=== PATIENT | female | born 1980 | race Caucasian/White ===

== ENCOUNTER 2025-04-03 12:56 | Emergency (ER) | payer MEDICAID, SELFPAY ==
--- OUTSIDE RECORDS SUMMARY | 2025-02-13 02:00 | XMS_ITS ---
Author Organization [facility] Address [address] [place] [address] Care Team Providers Care Strain Technician Name Role Phone Mando Sparks Primary Care Provider [phone] Marivel Nance [phone] REASON FOR VISIT WRU Admit Eval Encounters Encounter Location Date Provider Diagnosis [address] [address] 02/13/2025 Marivel Nance Plan Of Treatment No Information Progress Notes * Breanna LAMA MDOB: 0 (44 yo F)Acc No.[id number]:02/13/2025 UNLOCKED PROGRESS NOTE Patient: Saniya EDWARDSBreanna Provider: Jo Ann Nance APN :1980 A ge:44 Y S ex:Female Date:02/13/2025 Phone: Address:[address] [place], [place] [id number] Pcp:Mando Sparks Structured Data:Is there a n tammi you would prefer we call you? (Nombre que prefiere usar) : No Subjective: * Chief Complaints: * 1 . WRU Admit Eval. * Medical History: Objective: * Vitals: Assessment: Plan: * Treatment: * * Electronic signature of Tevin Nance on 04/03/2025 at 03:35 PM GREENHOUSE LABORER Sign off status: Pending * Provider: Jo Ann Nance APN Date: Generated for Printi ng/Fabenjag/eTransmitting on: 06/03/2024 03:35 PM GREENHOUSE LABORER
--- OUTSIDE RECORDS SUMMARY | 2025-02-18 03:00 | XMS_ITS ---
Author Organization [facility] Address [address] [place] [address] Care Team Providers Care Spot Cleaner Name Role Phone Mando Sparks Primary Care Provider Gelacio Horton Unavailable [phone] REASON FOR VISIT MAT NewPT Encounters Encounter Location Date Provider Diagnosis [facility] [address] [place] [address] [place] [address] 02/18/2025 Gelacio Horton Plan Of Treatment No Information Progress Notes * Breanna LAMA MDOB: 0 (44 yo F)Acc No.[id number]:02/18/2025 UNLOCKED PROGRESS NOTE Patient: Saniya EDWARDS Breanna José Provider: Leonel Horton, MSN, DEVELOPMENT EDUCATOR, HEALTHCARE ECONOMICS MANAGER-C :1980 A ge:44 Y S ex:Female Date:02/18/2025 Phone: Address:[address] [place], [place] [id number] Pcp:Mando Sparks Structured Data:Is there a n tammi you would prefer we call you? (Nombre que prefiere usar) : No Subjective: * Chief Complaints: * 1 . MAT NewPT. * Medical History: Objective: * Vitals: Assessment: Plan: * Treatment: * * Electronic signature of Princess Horton APRN, [id number] on 04/03/2025 at 03:35 PM EXAMINER RATING CLERK Sign off status: Pending * Provider: Leonel Horton, MSN, DEVELOPMENT EDUCATOR, HEALTHCARE ECONOMICS MANAGER-C Date: Generated for Laquita ng/Faxing/eTransmitting on: 06/03/2024 03:35 PM EXAMINER RATING CLERK
--- OUTSIDE RECORDS SUMMARY | 2025-02-28 07:20 | XMS_ITS ---
Author Organization [facility] Address [address] [place] [address] Care Team Providers Care Cdl Service Technician Name Role Phone Mando Sparks Primary Care Provider [phone] Gelacio Horton Unavailable [phone] REASON FOR VISIT new patient Encounters Encounter Location Date Provider Diagnosis [facility] [address] [place] [address] [place] [address] 02/28/2025 Gelacio Horton Plan Of Treatment No Information Progress Notes * Breanna LAMA MDOB: 0 (44 yo F)Acc No.[id number]:02/28/2025 UNLOCKED PROGRESS NOTE Patient: Saniya EDWARDS Breanna José Provider: Leonel Horton, MSN, CAGE CASHIER, CASTING ASSISTANT-C :1980 A ge:44 Y S ex:Female Date:02/28/2025 Phone: Address:[address] [place], [place] [id number] Pcp:Mando Sparks Structured Data:Is there a n tammi you would prefer we call you? (Nombre que prefiere usar) : No Subjective: * Chief Complaints: * 1 . New patient. * Medical History: Objective: * Vitals: Assessment: Plan: * Treatment: * * Electronic signature of Princess Horton APRN, [id number] on 04/03/2025 at 03:35 PM MANAGER ASSESSMENT Sign off status: Pending * Provider: Leonel Horton, MSN, CAGE CASHIER, CASTING ASSISTANT-C Date: Generated for Laquita ng/Faxing/eTransmitting on: 06/03/2024 03:35 PM MANAGER ASSESSMENT
[2025-04-03 13:02] VITALS: BP 105/76; PULSE 109; RESP 18; TEMP 36.9; O2SAT 98
--- NOTE | 2025-04-03 13:11 | ED_ITS ---
HPI - General Adult General Chief complaint: Back Pain/Injury Stated complaint: pink eye/breathing issues/back pain Time Seen by Provider: 04/03/25 13:12 Source: patient Mode of arrival: ambulatory Limitations: no limitations History of Present Illness HPI narrative: 44 year old female who presents to [facility] care with complaints of awakening this morning with her right upper eyelid red and swollen and eye crusting noted with some yellow discharge and vision a little blurry. She reports also that she has had a productive cough for the past 5 month also admits to heavy tobacco use. Patint reports no acute dyspnea states sometime some shortness of breath with exertion. Patient also reports that she has some lower back papin with no known injury. Patient denies any dyfunction of bowel or bladder, no saddle paraesthesia, no radiation of pain.Visual acuity with glasses 20/40 bilateral eyes. MD complaint: right eyelid redness with crusting, productive cough, low back gustavo n Onset (ago): day(s) (this morning eye, 5 months productive cough,back 1 week) Severity scale (1-10): 10 Quality: aching and sharp Treatments prior to arrival: none Related Data Home Medications ?Medication ?Instructions ?Recorded ?Confirmed ?Last Taken ?Type ambien 04/03/25 Unknown History buspirone 5 mg tablet 5 mg PO ONCE 04/03/25 Unkno wn History levothyroxine 04/03/25 Unknown History olanzapine 10 mg tablet (Zyprexa) 10 mg PO DAILY 04/03 Unknown History zoloft 04/03/25 Unknown History Allergies Allergy/AdvReac Type Severity Reaction Status Date / Time No Known Allergies Allergy Verified 04/03/25 13:09 Review of Systems Review of Systems: CONSTITUTIONAL: Denies fever, chills, or sweats. EYES: Reports some right eye blurring,, redness swelling of right upper eyelid with some crusting this morning or discharge. ENT: Denies rhinorrhea, congestion, sore throat, or otalgia. CARDIOVASCULAR: Denies chest pain, palpitations, or edema. RESPIRATORY: Reports cough or dyspnea at times with exertion. GASTROINTESTINAL: Denies abdominal pain, nausea, vomiting, or diarrhea. GENITOURINARY: Denies dysuria or hematuria. SKIN: Denies rash or itching. MUSCULOSKELETAL: Reports low back pain, joint pain, or myalgia. NEUROLOGIC: Denies headache, numbness, or weakness. PSYCHIATRIC: Positive for anxiety or depression.bipolar and PTSD sees [facility] All systems reviewed & are unremarkable except as noted in HPI and below PMFSH Past Medical History Medical History (Updated 04/04/25 @ 10:25 by Jaimie Brenner APRN) Hypothyroidism Anxiety and depression Bipolar 1 disorder, mixed PTSD (post-traumatic stress disorder) Surgical History Surgical History (Updated 04/04/25 @ 10:17 by Jaimie Brenner APRN) History of cholecystectomy H/O section x4 Social History Social History (Updated 04/04/25 @ 10:16 by Jaimie Brenner APRN) Smoking status: Current every day smoker Tobacco type: cigarettes Additional smoking assessment comments: heavy tobacco use 2-3 ppd Alcohol use details: no alcohol use Substance use type: does not use Gender identity (if verbalized by the patient): Female Comments At time of signature, agree with nursing past medical, surgical, social and family history. There is no relevant family history pertinent to the presenting complaint Exam Narrative: GENERAL: Well-appearing, well-nourished, and in no acute distress. HEAD: Normocephalic, atraumatic. EYES: PERRLA and EOMI. right eyelid swollen and red with no lesions noted has flaking along upper eyelashes, no redness of sclera or conjunctiva no mucous drainage noted ENT: Nares clear, no rhinorrhea or epistaxis. Mucous membranes moist.TM's normal, throat pink with no swelling or exudates NECK: Supple.no lymphadenopathy CHEST: Scattered wheezing noted on auscultation. No respiratory distress. cough productive, no tachypnea noted SAO2 98% on room air HEART: Regular rate and rhythm. No murmur heard. Normal peripheral pulses. ABDOMEN: Soft, nontender, nondistended, normal active bowel sounds. EXTREMITIES: Normal range of motion. No edema. Reports low back pain with no radiation of pain, moves well from sitting to standing, denies any tingling or numbness to extremities,denies any difficulty with bowel or bladder function, no paraspinal pain or swelling noted no saddle paraesthesia. SKIN: Warm, dry, no rash. NEURO: No focal deficits. Alert and oriented x3. Course Course Emergency Course: Patient is aware of diagnosis, understands and agrees to treatment plan.? Anticipatory guidance given.? Patient agrees to follow-up as directed and is aware of reasons to seek care at the emergency department. Portions of this record may have been created with voice recognition software Level of Care: Express Care Visit Vital Signs Vital signs: Vital Signs Temperature 36.9 C 04/03/25 13:02 Pulse Rate 109 H 04/03/25 13:02 Respiratory Rate 18 04/03/25 13:02 Blood Pressure 105/76 04/03/25 13:02 Pulse Oximetry 98 04/03/25 13:02 Oxygen Delivery Room Air 04/03/25 13:02 Temperature 36.9 C 04/03/25 13:02 Pulse Rate 109 H 04/03/25 13:02 Respiratory Rate 18 04/03/25 13:02 Blood Pressure 105/76 04/03/25 13:02 Pulse Oximetry 98 04/03/25 13:02 Oxygen Delivery Room Air 04/03/25 13:02 Reviewed Medical Decision Making MDM Narrative Medical decision making narrative: Exam findings and imaging show no acute concerns or changes; patient is non- toxic appearing and is in no distress.? Patient is appropriate for outpatient treatment and follow-up Differential Diagnosis Differential Diagnosis: URI, acute cough, bronchitis, blepharitis right upper eyelid, swelling and pain right upper eyelid, low back pain without injury reported Medical Records Medical records reviewed: Yes I reviewed the external patient's medical records. Medical records narrative: s Vital Signs Vital Signs: Vital Signs Temperature 36.9 C 04/03/25 13:02 Pulse Rate 109 H 04/03/25 13:02 Respiratory Rate 18 04/03/25 13:02 Blood Pressure 105/76 04/03/25 13:02 Pulse Oximetry 98 04/03/25 13:02 Oxygen Delivery Room Air 04/03/25 13:02 Temperature 36.9 C 04/03/25 13:02 Pulse Rate 109 H 04/03/25 13:02 Respiratory Rate 18 04/03/25 13:02 Blood Pressure 105/76 04/03/25 13:02 Pulse Oximetry 98 04/03/25 13:02 Oxygen Delivery Room Air 04/03/25 13:02 Critical Care Time Critical Care Time Critical Care Time: No Discharge Plan Discharge Clinical Impression: Lumbar back pain, Bronchitis, Tobacco abuse Blepharitis of eyelid of right eye Qualifiers: Blepharitis type: unspecified type Eyelid: upper Qualified Code(s): H01.001 - Unspecified blepharitis right upper eyelid Patient Disposition: Home Condition: Stable Instructions: Antibiotic Form, Blepharitis (ED), Acute Bronchitis (ED), Low Back Strain (ED) Additional Instructions: Cold compresses to the eyes for comfort May need warm compresses to remove debris in the morning When cleaning the eyes used a washcloth in one direction then change washcloths or use a cotton ball in one direction and then his cotton balls Eyedrops as directed--may be more soothing if left in the refrigerator Do not share medicine--do not touch the eye with the medicine Tylenol or ibuprofen for pain Avoid screen time--television, computer, tablet or phone. Also no reading or driving Follow-up with PCP or industrial recruiter as directed if no improvement in 48 hours Ice and heat to the area for 20-30 minutes Gentle stretching exercises Gentle massage Caution with lifting, bending, stooping, twisting Avoid pushing, pulling Anti-inflammatory medicine as directed--take with food Follow-up with your PCP if not improving in 5-7 days Increase fluids especially juices and water [id number] cough and cold medicine of your choice for your symptoms Zyrtec Claritin or Celeste daily Continue your inhaler/nebulizer as directed Steroids as directed--take with food heat to the face 20-30 minutes 4-6 times a day for pain Salt water gargles, throat lozenges or throat sprays as desired Antibiotic as directed--finished the medication If your symptoms persist, change or worsen significantly before you can contact your personal physician then please, without delay, go to the emergency department for further evaluation. Follow-up with PCP in 7-10 days or sooner if needed QUIT SMOKING Patient Language: Icelandic Prescriptions: New prednisone 20 mg tablet 40 mg PO DAILY 5 Days Qty: 10 0RF albuterol sulfate [Ventolin HFA] 90 mcg/actuation HFA aerosol inhaler 2 puff inhalation QID PRN (Reason: shortness of breath or wheezing) Qty: 8.5 0RF erythromycin 5 mg/gram (0.5 %) ointment 0.5 inch EACH EYE QID 7 Days Qty: 3.5 0RF amoxicillin-pot clavulanate 875-125 mg tablet 1 tablet PO Q12H Qty: 20 0RF Rx Instructions: get probiotic No Action olanzapine [Zyprexa] 10 mg tablet 10 mg PO DAILY buspirone 5 mg tablet 5 mg PO ONCE zoloft levothyroxine ambien Follow-up/Referrals: Lennox,JAMIN Lu [Primary Care Provider, Unknown] Time of Disposition: 13:37 Quality [place] Coma Scale Eyes: Open Verbal: Oriented and Alert Motor: Follows Commands Aldo Coma Total Score: 15
--- OUTSIDE RECORDS SUMMARY | 2025-04-03 15:35 | XMS_ITS | Encounter Summary ---
Author Organization [facility] Address [address] [place] [id number] Phone Care Team Providers Care Wood Heel Back Liner Name Role Phone Tabitha High APRN, CNP Primary Care Provider Reason for Referral * Consult, Test & Initiate Treatment (Routine) - Canceled Specialty Diagnoses / Procedures Referred By Contwil t Referred To Contact Diagnoses Loud snoring Excessive daytime sleepiness Emily Sam APRN, CNP #[address] [address] Phone: tel: fax: [facility] [address] [place] [address] Phone: tel: fax: Referral ID Status Reason Start Date Expiration Date V isits Requested Visits Authorized [id number] Canceled 03/31/2025 1 1 Scheduling Instructions Breanna is being referred for excessive daytime sleepiness/snoring. Please contact patient for scheduling questions or concerns. RATURE TEACHER Encounter Details Date Type Department Care Team ([facility] Contact Info) Description 03/31/2025 Results Follow-Up [facility] - Pulmonology & Sleep Medicine [facility] [address] [place] [address] Emily Sam APRN, CNP #[address] [address] MULTIPLE SLEEP LATENCY TEST WITHOUT CPAP Social History Tobacco Use Types Packs/Day Years Used Date Smoking Tobacco: Never Assessed Comments Unknown Sex and Gender Information Value Date Recorded Sex Assigned at Not on file Legal Sex Female 9:48 PM CDT Gender Identity Not on file Sexual Orientation Not on file documented as of this encounter Plan of Treatment Upcoming Encounters Date Type Department Care Team ([facility] st Contact Info) Description 04/18/2025 3:30 PM LITERATURE TEACHER Telemedicine [facility] - [place] [address] [facility] [address] [place] [address] Emily Sam APRN, SUPERVISOR MAJOR APPLIANCE ASSEMBLY [address] [address] Scheduled Referrals Name Type Priority Associated Diagnoses Orde r Schedule SLEEP STUDY REFERRAL Outpatient Referral Routine Loud snoring Excessive daytime sleepiness Expected: 03/31/2025, Expires: 03/31/2026 documented as of this encounter Visit Diagnoses Diagnosis Excessive daytime sleepiness- Primary Loud snoring documented in this encounter Care Teams Wood Heel Back Liner Relationship Specialty Start Date End Date Tabitha High APRN, RIVAS [address] [place] [address] PCP - General Advanced Practice Nurse 01/01/25 documented as of this encounter
--- OUTSIDE RECORDS SUMMARY | 2025-04-03 15:35 | XMS_ITS | Patient Health Record ---
Author Organization [facility] Address [address] [place] [address] Care Team Providers Care Rn Burn Name Role Phone Mando Sparks Primary Care Provider Gelacio Horton Unavailable [phone] Carrie Crowe Unavailable [phone] Marivel Nance Unavailable [phone] Results Component Value Reference Range Notes Test, Urine Reviewed date:02/12/2025 11:55:46 AM Interpretation: Performing Lab: Notes/Report: Test, Urine neg Negative - Negative 14 Panel Urine Drug Screen Reviewed date:02/13/2025 07:57:27 AM Interpretation: Performing Lab: Notes/Report: THC neg JAQUI neg MOP (OPI) neg AMP neg MET neg BAR neg BZO pos MDMA neg MTD neg OXY neg PCP neg BUP neg TCA neg FTY neg Rapid Plasma Reagin (RPR) Te st With Reflex to Quantitative RPR and Confirmatory Treponema pallidum Antibodies Reviewed date:02/17/2025 08:59:20 AM Interpretation: Performing Lab:[employer] [employer], [address] [facility], Phone - [phone], Director - [facility] Notes/Report: RPR Non Reactive Non Reactive QuantiFERON-TB Gold Plus ([id number]) Reviewed date:02/17/2025 08:59:19 AM Interpretation: Performing Lab:[employer], [address] [facility], Phone - [phone], Director - [facility] Notes/Report: QuantiFERON Incubation Incubation performed. QuantiFERON-TB Gold Plus Negative Negative No response to M tuberculosis antigens detected. Infection with M tuberculosis is unlikely, but high risk individuals should be considered for additional testing (ATS/IDSA/CDC Clinical Practice Guidelines, 2017). The reference range is an Antigen minus Nil result of <0.35 IU/mL. Chemiluminescence immunoassay methodology QuantiFERON Criteria QuantiFERON-TB Gold Plus is a qualitative indirect test for M tuberculosis infection (including disease) and is intended for use in conjunction with risk assessment, radiography, and other medical and diagnostic evaluations. The QuantiFERON-TB Gold Plus result is determined by subtracting the Nil value from either TB antigen (Ag) value. The Mitogen tube serves as a control for the test. QuantiFERON TB1 Ag Value 0.02 QuantiFERON TB2 Ag Value 0.02 QuantiFERON Nil Value 0.02 QuantiFERON Mitogen Value >10.00 Breathalyzer Reviewed date:02/13/2025 07:57:27 AM Interpretation: Performing Lab: Notes/Report: MARY 0.000 CMP 14 Comprehensive Metabol ic Panel* Reviewed date:02/17/2025 08:59:19 AM Interpretation: Performing Lab:[employer] [place], [address] [facility], Phone - [phone], Director - [place] Notes/Report: Glucose 92 70-99 mg/dL BUN 6 6-24 mg/dL Creatinine 0.84 0.57-1.00 mg/dL eGFR 88 >59 mL/min/1.73 BUN/Creatinine Ratio 7 9-23 Sodium 132 134-144 mmol/L Potassium 4.2 3.5-5.2 mmol/L Chloride 98 96-106 mmol/L Carbon Dioxide, Total 21 20-29 mmol/L Calcium 9.9 8.7-10.2 mg/dL Protein, Total 7.0 6.0-8.5 g/dL Albumin 4.3 3.9-4.9 g/dL Globulin, Total 2.7 1.5-4.5 g/dL Bilirubin, Total <0.2 0.0-1.2 mg/dL Alkaline Phosphatase 78 41-116 IU/L AST (SGOT) 16 0-40 IU/L ALT (SGPT) 17 0-32 IU/L Chlamydia trachomatis,Neisse nick gonorrhoeae, and Trichomonas vaginalis, MANJULA ([id number]) Reviewed date:02/17/2025 08:59:19 AM Interpretation: Performing Lab:[employer] [place], [address] [facility], Phone - [phone], [facility] Notes/Report: Chlamydia by MANJULA Negative Negative Gonococcus by MANJULA Negative Negative Trich vag by MANJULA Negative Negative CBC With Differential/Platel et* Reviewed date:02/17/2025 08:59:19 AM Interpretation: Performing Lab:[facility], [address] [facility], Phone - [phone], [facility] Notes/Report: WBC 6.9 3.4-10.8 x10E3/uL RBC 3.65 3.77-5.28 x10E6/uL Hemoglobin 13.2 11.1-15.9 g/dL Hematocrit 39.2 34.0-46.6 % MCV 107 79-97 fL MCH 36.2 26.6-33.0 pg MCHC 33.7 31.5-35.7 g/dL RDW 13.5 11.7-15.4 % Platelets 297 150-450 x10E3/uL Neutrophils 68 Not Estab. % Lymphs 22 Not Estab. % Monocytes 6 Not Estab. % Eos 3 Not Estab. % Basos 1 Not Estab. % Neutrophils (Absolute) 4.6 1.4-7.0 x10E3/uL Lymphs (Absolute) 1.5 0.7-3.1 x10E3/uL Monocytes(Absolute) 0.4 0.1-0.9 x10E3/uL Eos (Absolute) 0.2 0.0-0.4 x10E3/uL Baso (Absolute) 0.1 0.0-0.2 x10E3/uL Immature Granulocytes 0 Not Estab. % Immature Grans (Abs) 0.0 0.0-0.1 x10E3/uL HIV Screen *HIV 1, 2 Ab, p24 Ag ([id number]) Reviewed date:02/17/2025 08:59:19 AM Interpretation: Performing Lab:[facility] [place], [address] [facility] [place], Phone - [phone], Director [facility] Notes/Report: HIV Ab/p24 Ag Screen Non Reactive Non Reactive HIV-1/HIV-2 antibodies and HIV-1 p24 antigen were NOT detected. There is no laboratory evidence of HIV infection. HIV Negative Reason For Referral No Information Medications Medication SIG (Take, Route, Frequency, Duration) Notes Start Date End Date Status Nicotine Polacrilex 4 MG 1 lozenge as ne eded for nicotine cravings Mouth/Throat Up to once per hour (maximum of 15 lozenges per day); Duration: 7 days 02/12/2025 Active hydrOXYzine Pamoate 25 MG 1-2 capsules O rally every 4 hours as needed for anxiety, agitation, or inability to sleep. Do not give within 4 hours of diphenhydramine.; Duration: 30 days 02/12/2025 Active OLANZapine 5 MG 1 tablet Orally Once a day Active Nicotine 21 MG/24HR 1 patch to skin. Transdermal Once a day, removing at bedtime; Duration: 28 days 02/12/2025 Active Levothyroxine Sodium 50 MCG 1 tablet in the morning on an empty stomach Orally Once a day Active Melatonin 5 MG 1 tablet at bedtime as needed Orally Once a day; Duration: 30 days 02/12/2025 Active busPIRone HCl 10 MG 1 tablet Orally Twic e a day Active Multi Vitamin - 1 tablet Orally Once a day; Duration: 30 days 02/12/2025 Active Zolpidem Tartrate 10 MG 1 tablet at bedt gabriella as needed Orally Once a day Active busPIRone HCl 10 MG 1 tablet Orally Twic e a day Active Sertraline HCl 100 MG 1 tablet Orally On ce a day Active Vitamin D2 Active Social History Tobacco Use: Social History Observation Description Date Details (start date - stop date) Current Smoker RAE WALKER Question Answer Notes Date Completed/Updated: 02/12/2025 What is your current housing situation? I have h ousing Are you worried about losing your housing? No What is the highest level of school that you have finished? More than high school What is your current work situation? Oth erwise unemployed but not seeking work (ex. student, retired, disabled, unpaid primary animal care service worker) In the past year, have you o r any family members you live with been unable to get any of the following when it was really needed? Check all that apply Medicine or any health care (medical, dental, mental health or vision) Has lack of transportation k ept you from medical appointments, meetings, work or from getting things needed for daily living? Yes, it has kept me from medical appointments or from getting my medications,Yes, it has kept me from non-medical meetings, appointments, work, or getting things needed for daily living How often do you see or talk to people that you care about and feel close to? (For example: talking to friends on the phone, visiting friends or family, going to taoist or club meetings) 1 or 2 times a week How stressed are you? Stress is when someone feels tense, nervous, anxious, or can\t sleep at night because their mind is troubled A little bit In the past year have you sp ent more than 2 nights in a row in a usp, long term, fci center, or juvenile correctional facility? No Are you a refugee? I choose not to answer this q uestion What country are you from? I choose not to answe r this question Do you feel physically and e motionally safe where you currently live? Yes In the past year, have you b een afraid of your partner or ex-partner? No PRAPARE Score: 7 Enabling Services Provided? Yes Please specify Case Management Assessment First Visit Tobacco Control (Standard) Question Answer Notes Tobacco use: Current smoker How often do you smoke cigarettes? Every day How many cigarettes a day do you smoke? 31 or mo re Problems Problem Type SNOMED Code ICD Code Onset Dates Problem Status W/U Status Risk Notes Problem Substance abuse (1737104219) Substance abuse (F19.10) Active confirmed Problem Overweight (000181802) Over weight (E66.3) Active confirmed Problem Mental health disorder (21713858) Mental health disorder (F99) Active confirmed Problem Physical examination, complete (00453792) Adult general medical examination (Z00.00) Active confirmed Vital Signs Heart Rate 94 /min 02/12/2025 Temperature 97.9 degrees Fahrenheit 02/12/2025 Respiratory Rate 18 /min 02/12/2025 Oximetry 97 % 02/12/2025 Blood pressure diastolic 70 mm Hg 02/12/2025 Height 60 in 02/12/2025 Blood pressure systolic 118 mm Hg 02/12/2025 Weight 184.0 lbs 02/12/2025 BMI 35.93 kg/m2 02/12/2025 Encounters Encounter Location Date Provider Diagnosis [facility] [address] [place] [address] 02/12/2025 Mando Sparks Adult general medical examination Z00.00 ; Over weight E66.3 and Unprotected sexual intercourse Z72.51 [facility] [address] [place] [address] 02/12/2025 Carrie Crowe Over weight E66.3 ; Mental health disorder F99 and Substance abuse F19.10 Assessments Encounter Date Diagnosis (ICD Code) Assessment Notes Treatment Notes Treatment Clinical Notes Section Notes 02/12/2025 Over weight (ICD-10 - E66.3) 02/12/2025 Adult general medical examination (ICD-10 - Z00.00) Admit to the Mental Health/Crisis Residential Unit and initiate standing/protocol orders: The following PRN medications may be self-administered by patients under the supervision of approved staff or administered by nursing staff: Ibuprofen 200mg, 2-4 tablets by mouth (with food) every 6 hours as needed for pain (unless on lithium). (NOTE: Ibuprofen and acetaminophen may be given together, but alternating is recommended for continuous pain relief. Guaifenesin 400 mg, 1 tablet by mouth every four hours as needed for cough and chest congestion (take with large glass of water). Loratadine 10 mg, 1 tablet by mouth daily as needed for allergies, watery itchy eyes, or sinus drainage. Throat Lozenges, up to 4 tablets by mouth every three to four hours as needed for sore throat. Antacid tablets, 1-2 tablets by mouth every one to two hours as needed for indigestion or heart burn. If the client prefers liquid, could use: Liquid Antacid : 1 ounce by mouth up to four times daily as needed for indigestion or heartburn Omeprazole 20mg, 1 capsule by mouth once daily for 14 days for frequent heartburn (frequent heartburn is more than 2 episodes per week). Do not exceed 14 days. Do not give to client already taking a proton-pump inhibitor: esomeprazole (Nexium), lansoprazole (Prevacid), pantoprazole (Protonix), rabeprazole (Aciphex), dexlansoprazole (Dexilant) Zofran ODT disintegrating (under the tongue) 4 mg, 1-2 tablets every 8 hours as needed for nausea/vomiting. Milk of Magnesia (MOM): 1 ounce (30 milliliters) by mouth every day as needed for constipation. OR Miralax: Stir and fully dissolve 17 grams (1 packet or 1 capful to measured line) in any 4 to 8 ounces of beverage then drink once daily for constipation. Do not use for more than 7 days. OR Docusate 100 mg, 1 capsule twice daily as needed for constipation Hydrocortisone 1% Cream, apply topically (to the skin) to the affected area up to three times daily as needed for itching or inflammation (avoid eyes and genitals). 2% Antifungal Cream, apply topically (to the skin) as directed as needed to affected areas for athlete's foot or jock itch. Triple Antibiotic Ointment, apply topically (to the skin) up to three times daily as needed for minor cuts and scrapes. Carmex or Chapstick, apply topically (to the skin) as needed for chapped lips and skin. Orajel, apply to affected areas as needed for mouth or tooth pain. Lubricating Eye Drops, instill 1-2 drops to the affected eye(s) as needed for dry/irritated eye(s). Hemorrhoid medications, apply to affected area according to directions as needed for hemorrhoid discomfort and itch. Nix (Permethrin 1%) cream 2 ounces, apply topically (to the skin) as directed as needed for head lice. Sunscreen 30 SPF, Apply to exposed skin prior to exposure to sun. The following PRN medications must be approved by nursing staff before self-administration by patients: Diphenhydramine 25 mg, 2 tablets by mouth every 4 hours as needed for allergic reaction or itchy rash. Caution: Do not use hydroxyzine within 4 hours of diphenhydramine and vice versa. Loperamide 2 mg capsules, may give two capsules by mouth for the initial dose, followed by one capsule up to 3 times a day as needed for diarrhea. Acetaminophen 500 mg, 1 - 2 tablets by mouth every six hours as needed for pain. (NOTE: Ibuprofen and acetaminophen may be given together, but alternating is recommended for continuous pain relief). Oxygen-May administer oxygen 2L/min via nasal cannula if O2 saturation is less than 92%, AND client complains of shortness of breath. Target O2 saturation is 94-98%. Caution: Remember too much oxygen can be detrimental to a client with COPD. Oxygen is a drug and should be delivered by trained staff only. Nurses may remove superficial splinters and sutures from skin lacerations. May apply gauze or bandages to any weeping wounds. Contact nursing if there is pus, a foul odor, increased pain/redness/swelli ng, or if soaking through bandages. 02/12/2025 Over weight (ICD-10 - E66.3) 02/12/2025 Mental health disorder (ICD-10 - F99) 02/12/2025 Unprotected sexual intercourse (ICD-10 - Z72.51) 02/12/2025 Substance abuse (ICD-10 - F19.10) 02/12/2025 Other Continue treatment as recommended by [facility] Crisis Residential Unit staff. Encouraged patient to obtain routine medical care with patient's own primary care provider or establish as a patient at [facility] if no current primary care provider. 02/12/2025 Other Clinician met w ith client to assess needs for residential services. Clinician gathered information regarding historical presentation of mental health and substance use symptoms including withdrawal, HIV Risk assessment, psychiatric hospitalization history and presenting concern. Clinician conducted PHQ9 and CSSRS assessments as well as social drivers of health screening for the purposes of identifying additional service needs. Plan Of Treatment No Information Insurance Providers Payer Name Payer Address Payer Phone Subscriber Number Group Number Insured Name Patient Relationship to Insured Coverage Start Date Coverage End Date MEDICAID [address] [place] [address] [id number] Breanna Lama Self - patient is the insured 5 MEDICAID TELE[employer] [address] [place] [address] [id number] Breanna Lama Self - patient is the insured 5 Medical (General) History Medical History History ICD Code anxiety depression hallucinations ptsd Surgical History Surgery Date(Month/Year) in 1996,2000,2004,2013 Hospitalization History Reason Date(Month/Year) [facility]- cholecystectomy 2022
--- OUTSIDE RECORDS SUMMARY | 2025-04-03 15:35 | XMS_ITS | Clinical Summary ---
Author Organization [facility] Address [address] [place] [address] Phone Care Team Providers Care Micropaleontologist Name Role Phone Lennox, Tabitha Price APRN, CNP Primary Care Provider Allergies No known active allergies Medications busPIRone (BUSPAR) 5 MG Tablet Take 5 mg by mouth 2 times daily. 10/02/2018 Active lithium 300 MG Capsule Take 300 mg by mouth 2 times daily. 10/02/2018 Active venlafaxine (EFFEXOR-XR) 150 MG CAPSULE SR 24 HR Take 150 mg by mouth daily. 10/02/2018 Active ALPRAZolam (XANAX) 0.25 MG Tablet Take 1 tab 60 min prior to procedure, repeat dose 30 min later as needed. 2 Tab 04/09/2019 Active Active Problems Problem Noted Date Diagnosed Date Psychophysiological insomnia 03/19/2025 Loud snoring 03/19/2025 Excessive daytime sleepiness 03/19/2025 Chronic midline low back pain without sciatica 0 10/23/2018 Numbness of right foot 10/23/2018 Encounters Date Type Department Care Team Description 04/01/2025 Travel 03/31/2025 Transcribe Orders [facility] [address] [place] [address] Emily Sam APRN, CNP Loud snoring (Primary Dx); Excessive daytime sleepiness 03/31/2025 Results Follow-Up [facility] - Pulmonology & Sleep Medicine [facility] [address] [place] [address] Emily Sam APRN, CNP MULTIPLE SLEEP LATENCY TEST WITHOUT CPAP 03/27/2025 7:30 AM RESPIRATORY CARE ASSISTANT Sleep Lab [facility] [address] [place] [address] Emily Sam APRN, CNP Psychophysiological insomnia Discharge Disposition: Discharged to home or Selfcare 03/26/2025 7:30 PM RESPIRATORY CARE ASSISTANT [facility] [address] [place] [address] Emily Sam APRN, CNP Excessive daytime sleepiness Discharge Disposition: Discharged to home or Selfcare 03/26/2025 Travel 03/20/2025 Transcribe Orders [facility] [address] [place] [address] Emily Sam APRN, CNP Psychophysiological insomnia (Primary Dx) 03/20/2025 Transcribe Orders [facility] [address] [place] [address] Emily Sam APRN, CNP Excessive daytime sleepiness (Primary Dx) 03/19/2025 1:00 PM RESPIRATORY CARE ASSISTANT Telemedicine [facility] - [address] [place] [address] Emily Sam APRN, CNP Psychophysiological insomnia (Primary Dx); Loud snoring; Excessive daytime sleepiness 03/17/2025 Travel from Last 3 Months Social History Tobacco Use Types Packs/Day Years Used Date Smoking Tobacco: Never Assessed Comments Unknown Sex and Gender Information Value Date Recorded Sex Assigned at Not on file Legal Sex Female 9:48 PM CDT Gender Identity Not on file Sexual Orientation Not on file Last Filed Vital Signs Vital Sign Reading Time Taken Comments Blood Pressure 110/68 01/24/2019 10:28 AM CDT Pulse 65 01/24/2019 10:28 AM CDT Temperature 36.2 C (97.2 F) 01/24/2019 10:28 AM CDT Respiratory Rate - - Oxygen Saturation 98% 01/24/2019 10:28 AM CDT Inhaled Oxygen Concentration - - Weight 85.3 kg (188 lb) 03/19/2025 1:19 PM RESPIRATORY CARE ASSISTANT Height 152.4 cm (5') 03/19/2025 1:19 PM RESPIRATORY CARE ASSISTANT Body Mass Index 36.72 03/19/2025 1:19 PM RESPIRATORY CARE ASSISTANT Plan of Treatment Upcoming Encounters Date Type Department Care Team (Late st Contact Info) Description 04/18/2025 3:30 PM RESPIRATORY CARE ASSISTANT Telemedicine [facility] - [place] [address] [place] [address] Emily Sam, SOFT SUGAR OPERATOR HEAD, HAND HARDENER [address] [facility] [address] [place] [address] Health Maintenance Due Date Last Done Comments Hepatitis C Virus (HCV) Screening 1980 Mammogram 1980 Hepatitis B Immunization (1 of 3 - 19+ 3-dose series) 1999 Pap Smear 2001 Human Papillomavirus (HPV) Immunization (1 - 3-dose SCDM series) 2007 Cervical Cancer Screening (CCS) 2010 HPV/Cotest 2010 Discussion re Starting/Frequency of Mammograms 2020 Influenza Immunization (#1) 01/13/2025/01/2023, 03/07/2018, 05/24/2013 SARS-COV-2 Immunization ( season) 2025 05/12/2021, 10/19/2020, 09/28/2020 Respiratory Syncytial Virus (RSV) Immunization (Adult) (1 - 1-dose 75+ series) 2055 Pneumococcal Immunization Combined Aged Out 06/09/2013 No longer eligible based on patient's age to complete this topic DTaP/Tdap/Td Immunization Discontinued 04/12/2023 TdaP Immunization Completed 04/12/2023 Meningococcal Immunization (ACWY) Aged Out No longer eligible based on patient's age to complete this topic Rotavirus Immunization Aged Out No lo nger eligible based on patient's age to complete this topic Procedures Procedure Name Priority Date/Time Associated Diagnosis Comments GENERAL SLEEP STUDY Routine 03/27/2025 2 :03 PM RESPIRATORY CARE ASSISTANT MULTIPLE SLEEP LATENCY TEST WITHOUT CPAP Routine 03/26/2025 Psychophysiologica l insomnia POLYSOMNOGRAPHY 4 OR MORE PARAMETERS Routine 03/26/2025 Excessive daytime sleepiness from Last 3 Months Results * GENERAL SLEEP STUDY (03/27/2025 2:03 PM RESPIRATORY CARE ASSISTANT) us Not On File Provider SLEEP CENTER ORDERABLES Fin al Result * MULTIPLE SLEEP LATENCY TEST WITHOUT CPAP (03/26/2025) Emily Sam APRN, CNP SLEEP CENTER ORDERABL ES Final Result * POLYSOMNOGRAPHY 4 OR MORE PARAMETERS (03/26/2025) Emily Sam APRN, CNP SLEEP CENTER ORDERABL ES Final Result from Last 3 Months Insurance MEDICAID [place] Care Teams Micropaleontologist Relationship Specialty Start Date End Date Tabitha High APRN, CNP [address] [place] [address] PCP - General Advanced Practice Nurse 01/01/25
== END 2025-04-03 13:46 | disposition home or self-care (01) ==
PROVIDERS: Emergency Provider Registered Nurse; PCP Nurse Practitioner Family
DX: M54.50 Low back pain, unspecified (principal); J40 Bronchitis, not specified as acute or chronic; H01.001 Unspecified blepharitis right upper eyelid; F17.210 Nicotine dependence, cigarettes, uncomplicated; E03.9 Hypothyroidism, unspecified; F41.9 Anxiety disorder, unspecified; F32.A Depression, unspecified
CPT/HCPCS: 99213; G0463